=== PATIENT | female | born 1960 | race Caucasian/White ===

== ENCOUNTER 2018-07-26 19:03 | Emergency (ER) | payer OTHER ==
--- NOTE | 2018-07-26 19:11 | PDOC ---
History of Present Illness - General History Source: Patient Exam Limitations: No Limitations - History of Present Illness Initial Comments: 07/26/18 19:49 The patient is a 58 year old female, with a significant past medical history of HTN and hypothyroidism who presents to the emergency department with 2 days of cough and headache. The patient notes her headache radiates all over, and is gradually getting worse. The patient notes her symptoms are associated with nausea, body aches, and dizziness. The patient took 2 Advils at 4:30pm with no relief. The patient notes she did not get tested for the flu. The patient denies fever, chills, nausea, vomit, diarrhea and constipation. The patient denies dysuria, frequency, urgency and hematuria. PAST SURGICAL HISTORY: no significant history FAMILY HISTORY: no pertinent history SOCIAL HISTORY: Pt lives with family and is employed. MEDICATIONS: reviewed ALLERGIES: As per nursing notes <Óscar Sarmiento - Last Filed: 07/26/18 19:49> - General History Source: Patient Exam Limitations: No Limitations - History of Present Illness Initial Comments: 07/26/18 19:42 A portion of this note was documented by scribe services under my direction. I have reviewed the details of the note, within reason, and agree with the documentation with the following case summary and management plan written by me. Patient treated in the ED. Nursing notes are reviewed and incorporated into the medical decision-making. Vital signs reviewed. Assessment and plan: This is a 58-year-old female who comes in complaining of headache and nausea. However on my evaluation patient did not want to answer questions about her history that I was asking as she said she already answered them 2 times. In addition to that patient did not want any IV medication IM medication and also did not want any oral medication. Patient apparently came here for a prescription of ibuprofen Prescription for ibuprofen was sent to patient's pharmacy and she wanted to then be discharged. <Janet Levy I - Last Filed: 07/26/18 21:44> - General Chief Complaint: Migraine Headache Stated Complaint: MIGRAINE Time Seen by Provider: 07/26/18 19:09 Past History <Óscar Sarmiento - Last Filed: 07/26/18 19:49> - Past Medical History HTN: Yes - Immunization History Td Vaccination: Yes TDAP Vaccination: Yes Immunization Up to Date: Yes - Suicide/Smoking/Psychosocial Hx Smoking Status: No Smoking History: Never smoked Years of Tobacco Use: 0 Have you smoked in the past 12 months: No Number of Cigarettes Smoked Daily: 0 Cigars Per Day: 0 Hx Alcohol Use: Yes (RED WINE 3 TIMES A WEEK) Drug/Substance Use Hx: No Substance Use Type: None <Janet Levy I - Last Filed: 07/26/18 21:44> - Past Medical History Allergies/Adverse Reactions: Allergies Allergy/AdvReac Type Severity Reaction Status Date / Time No Known Allergies Allergy Verified 03/11/12 20:40 Home Medications: Ambulatory Orders Ibuprofen [Advil -] 400 mg PO ONCE 07/26/18 Ibuprofen [Motrin -] 600 mg PO TID #21 tablet 07/26/18 Lisinopril 10 mg PO DAILY 07/26/18 Mag Hydrox/Al Hydrox/Simeth [Mylanta *Suspension*] 30 ml PO Q6H #10 cup Metoprolol Succinate [Toprol Xl] 25 mg PO HS 07/26/18 Thyroid [[place] Thyroid] 30 mg PO DAILY 07/26/18 Review of Systems - Review of Systems Able to Perform ROS?: Yes Comments:: 07/26/18 19:50 General: (+) body aches. No fevers or chills, no weakness, no weight loss HEENT: No change in vision. No sore throat,. No ear pain CardioVascular: No chest pain or shortness of breath Respiratory:(+)cough. No wheezing. Gastrointestinal: (+) nausea. No vomiting, diarrhea or constipation, No rectal bleeding Genitourinary: No dysuria, hematuria, or frequency Musculoskeletal: No joint or muscle pain or swelling Neurologic:(+) dizziness. No headache, vertigo, or loss of consciousness Psychiatric: nor depression Skin: No rashes or easy bruising Endocrine: no increased thirst or abnormal weight change Allergic: no skin or latex allergy All other systems reviewed and normal All Other Systems: Reviewed and Negative <Óscar Sarmiento - Last Filed: 07/26/18 19:49> *Physical Exam - Vital Signs Last Vital Signs Temp Pulse Resp BP Pulse Ox 98.4 F 69 16 110/76 99 07/26/18 19:05 07/26/18 19:05 07/26/18 19:05 07/26/18 19:05 07/26/18 19:05 - Physical Exam Comments: 07/26/18 19:50 GENERAL: The patient is awake, alert, and fully oriented, in no acute distress. HEAD: Normal with no signs of trauma. EYES: Pupils equal, round and reactive to light, extraocular movements intact, sclera anicteric, conjunctiva clear. EXTREMITIES: Normal range of motion, no edema. NEUROLOGICAL: Normal speech, normal gait. PSYCH: Normal mood, normal affect. SKIN: Warm, Dry, normal turgor, no rashes or lesions noted. <Óscar Sarmiento - Last Filed: 07/26/18 19:49> Moderate Sedation - Procedure Monitoring Vital Signs: Procedure Monitoring Vital Signs Temperature 98.4 F 07/26/18 19:05 Pulse Rate 69 07/26/18 19:05 Respiratory Rate 16 07/26/18 19:05 Blood Pressure 110/76 07/26/18 19:05 O2 Sat by Pulse Oximetry (%) 99 07/26/18 19:05 <Óscar Sarmiento - Last Filed: 07/26/18 19:49> *DC/Admit/Observation/Transfer - Attestations Scribe Attestion: 07/26/18 19:51 Documentation prepared by Óscar Sarmiento, acting as medical malpractice paralegal for Janet Levy MD <Óscar Sarmiento - Last Filed: 07/26/18 19:49> - Discharge Dispostion Decision to Admit order: No <Janet Levy I - Last Filed: 07/26/18 21:44> Diagnosis at time of Disposition: Headache Qualifiers: Headache type: tension-type Headache chronicity pattern: acute headache Intractability: not intractable Qualified Code(s): G44.209 - Tension-type headache, unspecified, not intractable - Discharge Dispostion Disposition: HOME Condition at time of disposition: Good - Prescriptions Prescriptions: Ibuprofen [Motrin -] 600 mg PO TID #21 tablet Mag Hydrox/Al Hydrox/Simeth [Mylanta *Suspension*] 30 ml PO Q6H #10 cup - Referrals Referrals: Ike Hill MD [Primary Care Provider] - - Patient Instructions Additional Instructions: For the headache take Motrin one 600 mg tablet 3 times a day with food don't take on an empty stomach Return to the emergency department immediately with ANY new, persistent or worsening symptoms. Continue any medications as previously prescribed by your physician. You should follow up with your primary doctor as soon as possible regarding today's emergency department visit. . Please make sure your doctor reviews the results of your emergency evaluation. Thank you for coming to the Emergency Department today for your care. It was a pleasure to see you today. Please note that your evaluation is INCOMPLETE until you follow-up with your doctor. - Post Discharge Activity
[2018-07-26 19:43] VITALS: BP 110/76; PULSE 69; TEMP 98.4; BMI 28.3
[2018-07-26] MEDS ORDERED: MAG HYDROX/AL HYDROX/SIMETH 30 ML UNIT-DOSE CUP ONE (19:53)
[2018-07-26] MEDS ORDERED: MAG HYDROX/AL HYDROX/SIMETH -MYLANTA- ORAL SUSPENSION PO ONE (20:04)
== END 2018-07-26 20:08 | disposition home or self-care (01) ==
LOC: FER 19:03
DX: G44.209 Tension-type headache, unspecified, not intractable (principal); I10 Essential (primary) hypertension; E03.9 Hypothyroidism, unspecified
CPT/HCPCS: 99281-25

== ENCOUNTER 2020-11-04 14:58 | Emergency (ER) | payer OTHER ==
[2020-11-04 15:12] VITALS: BP 173/96; PULSE 73; TEMP 99.1; BMI 28.3
[2020-11-04] MEDS ORDERED: KETOROLAC TROMETHAMINE 15 MG/ML VIAL IM ONE (15:42)
[2020-11-04] MEDS ORDERED: ONDANSETRON *ODT* 4 MG TABLET SL ONE (15:43)
[2020-11-04] MEDS ORDERED: ONDANSETRON *ODT* 4 MG TABLET ONE (15:50)
[2020-11-04] MEDS ORDERED: KETOROLAC TROMETHAMINE 15 MG/ML VIAL ONE (15:51)
[2020-11-04 16:53] LABS: EPITHELIAL CELLS RARE /hpf
== END 2020-11-04 16:54 | disposition home or self-care (01) ==
LOC: FER 14:58
PROC: 3E0233Z Introduction of Anti-inflammatory into Muscle, Percutaneous Approach (ICD-10-PCS; principal; 2020-11-04)
DX: N20.1 Calculus of ureter (principal)
CPT/HCPCS: 74176-TC; 81003; 81015; 87086; 99284-25; Q0162

== ENCOUNTER 2020-11-06 16:20 | Inpatient (IN) | payer OTHER ==
[2020-11-06] MEDS ORDERED: ONDANSETRON 4 MG/2 ML VIAL IVPUSH ONE (16:51)
[2020-11-06] MEDS ORDERED: SODIUM CHLORIDE 0.9% 1000 ML INFUS.BAG IV ONE ×2 (16:52→17:51)
[2020-11-06] MEDS ORDERED: ACETAMINOPHEN 1000 MG/100 ML VIAL (NON FORMULARY) IVPB ONE (16:52)
[2020-11-06] MEDS ORDERED: ACETAMINOPHEN INJECTION 100 ML IVPB ONE (17:03)
[2020-11-06] MEDS ORDERED: ONDANSETRON 4 MG/2 ML VIAL ONE (17:03)
[2020-11-06 17:23] LABS: HEMOGLOBIN 13.5 GM/dl (10.7-15.3); PLATELET COUNT 273 K/MM3 (134-434)
[2020-11-06 17:25] LABS: HEMATOCRIT 39.4 % (32.4-45.2); MCHC 34.3 g/dl (32.0-36.0); MEAN CELL VOLUME 84.7 fl (80-96); MEAN PLT VOLUME 10.9 fl (7.5-11.1); RBC 4.65 M/mm3 (3.60-5.2); RDW 12.6 % (11.6-15.6); WHITE BLOOD COUNT 7.7 K/mm3 (4.0-10.8)
[2020-11-06 17:30] LABS: EPITHELIAL CELLS FEW /hpf
[2020-11-06 18:07] LABS: PLATELET ESTIMATE ADEQUATE
[2020-11-06 18:10] LABS: ALBUMIN 4.1 g/dl (3.4-5.0); CALCIUM 8.5 mg/dl (8.5-10); CREATININE 0.6 mg/dl (0.55-1.3); TOT PROT 6.9 g/dl (6.4-8.2)
[2020-11-06 19:49] LABS: CALCIUM 8.5 mg/dl (8.5-10); CREATININE 0.6 mg/dl (0.55-1.3)
[2020-11-06] MEDS ORDERED: DEXTROSE 5%-WATER - 1,000 ML IV SCH (21:00)
[2020-11-06 21:03] VITALS: BMI 28.8
[2020-11-06] MEDS ORDERED: PHENAZOPYRIDINE HCL 100 MG TABLET (FP) PO ONE (21:51)
[2020-11-06] MEDS: ATORVASTATIN CA 10 MG TABLET (FP) PO SCH (22:36)
[2020-11-06] MEDS ORDERED: ACETAMINOPHEN 325 MG TABLET (FP) PO PRN (23:00)
[2020-11-07 09:29] LABS: BILIRUBIN,TOTAL 0.9 mg/dl (0.2-1); CREATININE 0.7 mg/dl (0.55-1.3); MAGNESIUM 2.2 mg/dL (1.8-2.4); TOT PROT 6.5 g/dl (6.4-8.2)
[2020-11-07 09:39] LABS: BASO % 1.4 % (0-2.0); EOS % 0.5 % (0-4.5); HEMATOCRIT 40.1 % (32.4-45.2); HEMOGLOBIN 13.6 GM/dl (10.7-15.3); MCH 29.1 pg (25.7-33.7); MCHC 33.9 g/dl (32.0-36.0); MEAN CELL VOLUME 85.8 fl (80-96); MEAN PLT VOLUME 10.9 fl (7.5-11.1); NEUT % 56.1 % (42.8-82.8); PLATELET COUNT 228 K/MM3 (134-434); RBC 4.68 M/mm3 (3.60-5.2); RDW 12.6 % (11.6-15.6); WHITE BLOOD COUNT 5.6 K/mm3 (4.0-10.8)
[2020-11-07] MEDS ORDERED: THYROID 30 MG TABLET PO SCH (10:00)
[2020-11-07] MEDS: THYROID 30 MG TABLET PO SCH (10:18)
[2020-11-07] MEDS ORDERED: PT OWN MED DRAWER 7, Y5N ONE (10:53)
[2020-11-07] MEDS ORDERED: PHENAZOPYRIDINE HCL 100 MG TABLET (FP) PO ONE (11:00)
[2020-11-07] MEDS ORDERED: DEXTROSE 5%-WATER - 1,000 ML IV SCH (13:01)
[2020-11-07 13:46] LABS: CALCIUM 9.1 mg/dl (8.5-10); CREATININE 0.7 mg/dl (0.55-1.3)
[2020-11-07] MEDS: ATORVASTATIN CA 10 MG TABLET (FP) PO SCH (21:18)
[2020-11-08 08:02] LABS: ALBUMIN 3.7 g/dl (3.4-5.0); BASO % 1.5 % (0-2.0); BILIRUBIN,TOTAL 0.7 mg/dl (0.2-1); CREATININE 0.7 mg/dl (0.55-1.3); EOS % 2.9 % (0-4.5); HEMATOCRIT 40.3 % (32.4-45.2); HEMOGLOBIN 13.2 GM/dl (10.7-15.3); LYMPH % 31.3 % (8-40); MAGNESIUM 2.1 mg/dL (1.8-2.4); MCH 28.4 pg (25.7-33.7); MCHC 32.7 g/dl (32.0-36.0); MEAN CELL VOLUME 86.8 fl (80-96); MEAN PLT VOLUME 10.2 fl (7.5-11.1); MONO % 11.5 % (3.8-10.2); NEUT % 52.8 % (42.8-82.8); PLATELET COUNT 220 K/MM3 (134-434); RBC 4.65 M/mm3 (3.60-5.2); RDW 12.9 % (11.6-15.6); TOT PROT 6.1 g/dl (6.4-8.2); WHITE BLOOD COUNT 5.8 K/mm3 (4.0-10.8)
[2020-11-08] MEDS: THYROID 30 MG TABLET PO SCH (09:17)
[2020-11-08] MEDS ORDERED: DEXTROSE 5%-WATER - 1,000 ML IV SCH (14:39)
[2020-11-08] MEDS: LOSARTAN POTASSIUM 25 MG TABLET PO SCH (14:42)
[2020-11-08] MEDS: ATORVASTATIN CA 10 MG TABLET (FP) PO SCH (21:54)
[2020-11-09 06:41] VITALS: TEMP 98
[2020-11-09] MEDS ORDERED: THYROID 30 MG TABLET PO SCH (07:45)
[2020-11-09] MEDS ORDERED: DEXTROSE 5%-WATER - 1,000 ML IV SCH (07:45)
[2020-11-09 08:00] LABS: ALBUMIN 3.9 g/dl (3.4-5.0); BILIRUBIN,TOTAL 0.6 mg/dl (0.2-1); CALCIUM 9.3 mg/dl (8.5-10); CREATININE 0.8 mg/dl (0.55-1.3); TOT PROT 6.5 g/dl (6.4-8.2)
[2020-11-09] MEDS: LOSARTAN POTASSIUM 25 MG TABLET PO SCH (09:12)
[2020-11-09 09:15] VITALS: BP 139/79; PULSE 81
== END 2020-11-09 10:53 | disposition home or self-care (01) | DRG 422 ==
LOC: FER 16:20 → FM/S 18:20
PROVIDERS: ADMIT Internal Medicine; ATTEND Nurse Practitioner Acute Care
DX: E87.1 Hypo-osmolality and hyponatremia (principal); G93.41 Metabolic encephalopathy; N20.0 Calculus of kidney; E86.0 Dehydration; I10 Essential (primary) hypertension; E78.5 Hyperlipidemia, unspecified; E03.9 Hypothyroidism, unspecified; Z20.822 Contact with and (suspected) exposure to COVID-19; R35.0 Frequency of micturition; N23 Unspecified renal colic
CPT/HCPCS: 36415; 71046-TC-FY; 80048; 80053; 81003; 81015; 82436; 83735; 83930; 83935; 84133; 84300; 84443; 85025; 87086; 93005; 99285-25; C9803; J0131; U0003; U0005